=== PATIENT | male | born 1965 ===

== ENCOUNTER 2017-05-28 11:33 | Emergency (ER) | payer MEDICAID, OTHER ==
[2017-05-28 11:34] VITALS: BMI 30.1
[2017-05-28 11:54] VITALS: BP 147/103; PULSE 86; RESP 20; TEMP 98; O2SAT 98
--- NOTE | 2017-05-28 12:11 | C.PDOC ---
History Of Present Illness 52 year old male, with PMHx of chronic low back pain, presents to ED for evaluation of low back pain worse on the left side for the last 3-4 days. Notes that pain occasionally radiates down her left leg. Notes taking Aleve and Percocet without relief. Pt states she slipped and fell off the bed, landed on her back. Denies any other injury, extremity weakness, numbness, abdominal pain , or fever. Time Seen by Provider: 05/28/17 11:54 Chief Complaint (Nursing): Back Pain History Per: Patient History/Exam Limitations: no limitations Onset/Duration Of Symptoms: Days (4) Current Symptoms Are (Timing): Still Present Quality Of Discomfort: "Pain" Previous Symptoms: Back Pain, Chronic Pain Associated Symptoms: None. denies: Incontinence, New Weakness, New Numbness Exacerbating Factor(s): Nothing Additional History Per: Patient Past Medical History Reviewed: Historical Data, Nursing Documentation, Vital Signs Vital Signs: Last Vital Signs Temp 98.0 F 05/28/17 11:50 Pulse 86 05/28/17 11:50 Resp 20 05/28/17 11:50 BP 147/103 H 05/28/17 11:50 Pulse Ox 98 05/28/17 13:25 - Medical History PMH: Anxiety, Arthritis, Back Problems (herniated discs x3), Bipolar Disorder, Depression, HTN, Rheumatoid Arthritis, Sleep Apnea (SLEEPS WITH C PAP UNIT) Denies: Chronic Kidney Disease - [facility] Procedures CLOSURE SKIN & SUBCUTANEOUS NEC (03/01/13) COLONOSCOPY (08/02/06) ENDOSC POLYPECTOMY OF LG INTEST (12/27/13) ESOPHAGOGASTRODUODENOSCOPY [EGD] W/CLOSED BIOPSY (08/02/06) PACKED CELL TRANSFUSION (08/02/06) TETANUS TOXOID ADMINIST (03/01/13) Family History: States: Unknown Family Hx - Social History Hx Tobacco Use: Yes Hx Alcohol Use: Yes Hx Substance Use: No - Immunization History Hx Tetanus Toxoid Vaccination: Yes Hx Influenza Vaccination: Yes Hx Pneumococcal Vaccination: Yes Review Of Systems Except As Marked, All Systems Reviewed And Found Negative. Constitutional: Negative for: Fever, Chills Cardiovascular: Negative for: Chest Pain Respiratory: Negative for: Shortness of Breath Gastrointestinal: Negative for: Nausea, Vomiting, Abdominal Pain Genitourinary: Negative for: Dysuria, Frequency, Hematuria Musculoskeletal: Positive for: Back Pain Neurological: Negative for: Weakness, Numbness Physical Exam - Physical Exam Appears: Non-toxic, Other (In mild pain) Skin: Normal Color, Warm, Dry, Ecchymosis (1.5cm area of ecchymosis to left lower back) Head: Normacephalic Eye(s): bilateral: Normal Inspection Oral Mucosa: Moist Cardiovascular: Rhythm Regular, No Murmur Respiratory: Normal Breath Sounds, No Rales, No Rhonchi, No Wheezing Gastrointestinal/Abdominal: Soft, No Tenderness Back: No CVA Tenderness, No Vertebral Tenderness, Paraspinal Tenderness (left paralumbar) Extremity: Normal ROM Neurological/Psych: Oriented x3, Normal Speech Gait: Steady ED Course And Treatment O2 Sat by Pulse Oximetry: 98 (RA) Pulse Ox Interpretation: Normal - Other Rad LS spine X-Ray: Viewed By Me, Read By Radiologist Interpretation: Accession No. : [id number]. Patient Name / ID : EVER STALLWORTH / [id number]. Exam Date : 05/28/2017 12:55:58 ( Approved ). Study Comment : Sex / Age : M / 52Y. Creator : Yvan Agudelo MD. Dictator : Yvan Agudelo MD. Ethnographic Materials Conservator : Medical Scientific Officer : Yvan Agudelo MD. Approver2 : Report Date : 05/28/2017 13:10:23. My Comment : . PROCEDURE: Radiographs of the Lumbar Spine. HISTORY: LOW BACK PAIN. COMPARISON: No prior. FINDINGS: BONES: Normal alignment. No listhesis. No fracture. DISC SPACES: Degenerative disc disease at L5-S1 with vacuum disc phenomenon, disc space narrowing and marginal osteophytes. Remaining disc spaces are maintained in height. OTHER FINDINGS: None. IMPRESSION: Degenerative disc disease at L5 -S1. Otherwise unremarkable. Progress Note: LS spine ordered and reviewed. Pt was given Toradol, and Flexeril. On re-eval, patient is resting comfortably, reports improvement of back pain, no fever, no bony tenderness, no numbness, no weakness, or abdominal pain. Patient is ambulatory in the emergency department with no signs of discomfort. Patient was advised to follow up with their physician in 1-2 days. Medical Decision Making Medical Decision Making: [facility] AWARE: FEDERICA CURTIS 1965 1 male [address] [facility] [id number] Report [place] First Name: ever stallworth, 1965, , , , , , [place] Prescriptions:5 Prescribers:5 Pharmacies:1 Private Pay:0 Active Daily MME:0.0 Days Pharmcy* Pymt Tpe 01/13/2017 1 01/13/2017 OXYCODONE-ACETAMINOPHEN 5-325 20.0 7 ER HAB [id number] MACK (3113) 0 21.429 Comm Ins [place] 10/29/2016 1 10/29/2016 OXYCODONE-ACETAMINOPHEN 5-325 15.0 4 ME AMS [id number] MACK (3113) 0 28.125 [place] Ins [place] 10/19/2016 1 10/18/2016 OXYCODONE-ACETAMINOPHEN 5-325 20.0 4 AN FOR [id number] MACK (3113) 0 37.5 [place] Ins [place] 08/28/2016 1 08/28/2016 OXYCODONE-ACETAMINOPHEN 5-325 10.0 3 HE CINDI [id number] MACK (3113) 0 25.0 Comm Ins [place] 07/01/2016 1 07/01/2016 OXYCODONE-ACETAMINOPHEN 5-325 20.0 7 JU CARMELITA [id number] MACK (3113) 0 21.429 Comm Ins [place] Disposition Counseled Patient/Family Regarding: Diagnosis, Need For Followup, Rx Given - Disposition Referrals: Tim Craft MD [Medical Doctor] - Disposition: HOME/ ROUTINE Disposition Time: 13:25 Condition: STABLE Additional Instructions: FOLLOW UP WITH YOUR DOCTOR IN 1-2 DAYS USE MEDICATIONS NEEDED RETURN TO ER IF SYMPTOMS WORSEN Prescriptions: Cyclobenzaprine [Flexeril] 10 mg PO BID PRN #15 tab PRN Reason: Muscle Spasm Naproxen 375 mg PO BID PRN #20 tablet PRN Reason: pain Instructions: Low Back Pain (DC) Forms: [employer] (Telugu) Print Language: TURKMEN - Clinical Impression Clinical Impression: Low back pain, Lumbar sprain - Scribe Statement The provider has reviewed the documentation as recorded by the Peteribasher Waller All medical record entries made by the Peteribasher were at my direction and personally dictated by me. I have reviewed the chart and agree that the record accurately reflects my personal performance of the history, physical exam, medical decision making, and the department course for this patient. I have also personally directed, reviewed, and agree with the discharge instructions and disposition.
--- NOTE | 2017-05-28 13:11 | RAD ---
PROCEDURE: Radiographs of the Lumbar Spine. HISTORY: LOW BACK PAIN COMPARISON: No prior. FINDINGS: BONES: Normal alignment. No listhesis. No fracture. DISC SPACES: Degenerative disc disease at L5-S1 with vacuum disc phenomenon, disc space narrowing and marginal osteophytes. Remaining disc spaces are maintained in height. OTHER FINDINGS: None. IMPRESSION: Degenerative disc disease at L5-S1. Otherwise unremarkable.
== END 2017-05-28 13:53 | disposition home or self-care (01) ==
LOC: C.ER 11:33
DX: S33.5XXA Sprain of ligaments of lumbar spine, initial encounter (principal); W06.XXXA Fall from bed, initial encounter; M54.5 Low back pain
CPT/HCPCS: 72100; 96372; 99283; J1885

== ENCOUNTER 2018-02-22 15:42 | Emergency (ER) | payer OTHER ==
[2018-02-22 15:42] VITALS: BMI 30.1
[2018-02-22 15:54] VITALS: RESP 20
--- NOTE | 2018-02-22 16:06 | C.PDOC ---
History Of Present Illness 53 y/o male presents to the ER complaining of intermittent shortness of breath which has been present for the past 2 days. Patient states that his 1st episode was yesterday. During the episode, he had a sudden onset during heavy exertion and the symptoms resolved. Patient notes that he had 2nd episode today, he had sudden onset while he was resting. He notes that he still feels short of breath. Currently, patient denies having CP, fever, chills, nausea, vomiting, leg pain leg swelling ,recent travel abroad, and history of asthma. Of note, patient has history of smoking. <IsaacVeronica - Last Filed: 02/22/18 18:52> History Per: Patient History/Exam Limitations: no limitations Onset/Duration Of Symptoms: Days Current Symptoms Are (Timing): Still Present Severity: Moderate <Veronica Gray - Last Filed: 02/22/18 18:52> <Isabella Alexander - Last Filed: 02/22/18 19:58> Time Seen by Provider: 02/22/18 15:51 Chief Complaint (Nursing): Shortness Of Breath Past Medical History Reviewed: Historical Data, Nursing Documentation, Vital Signs - Medical History PMH: Anxiety, Arthritis, Back Problems (herniated discs x3), Bipolar Disorder, Depression, HTN, Rheumatoid Arthritis, Sleep Apnea (SLEEPS WITH C PAP UNIT) Denies: Chronic Kidney Disease Other Surgeries: Hx of surgeries - [facility] Procedures CLOSURE SKIN & SUBCUTANEOUS NEC (03/01/13) COLONOSCOPY (08/02/06) ENDOSC POLYPECTOMY OF LG INTEST (12/27/13) ESOPHAGOGASTRODUODENOSCOPY [EGD] W/CLOSED BIOPSY (08/02/06) PACKED CELL TRANSFUSION (08/02/06) TETANUS TOXOID ADMINIST (03/01/13) Family History: States: No Known Family Hx - Social History Hx Tobacco Use: Yes Hx Alcohol Use: Yes Hx Substance Use: No - Immunization History Hx Tetanus Toxoid Vaccination: Yes Hx Influenza Vaccination: Yes Hx Pneumococcal Vaccination: Yes <Veronica Gray - Last Filed: 02/22/18 18:52> Vital Signs: Last Vital Signs Temp 97.6 F 02/22/18 15:51 Pulse 88 02/22/18 15:51 Resp 20 02/22/18 16:07 BP 154/115 H 02/22/18 15:51 Pulse Ox 99 02/22/18 15:51 - [facility] Procedures CLOSURE SKIN & SUBCUTANEOUS NEC (03/01/13) COLONOSCOPY (08/02/06) ENDOSC POLYPECTOMY OF LG INTEST (12/27/13) ESOPHAGOGASTRODUODENOSCOPY [EGD] W/CLOSED BIOPSY (08/02/06) PACKED CELL TRANSFUSION (08/02/06) TETANUS TOXOID ADMINIST (03/01/13) <Isabella Alexander - Last Filed: 02/22/18 19:58> Review Of Systems Except As Marked, All Systems Reviewed And Found Negative. Constitutional: Negative for: Fever, Chills Cardiovascular: Negative for: Chest Pain Respiratory: Positive for: Shortness of Breath Gastrointestinal: Negative for: Nausea, Vomiting Musculoskeletal: Negative for: Leg Pain <Veronica Gray - Last Filed: 02/22/18 18:52> Physical Exam - Physical Exam Appears: Non-toxic, No Acute Distress Skin: Normal Color, Warm, Dry Head: Atraumatic, Normacephalic Eye(s): bilateral: Normal Inspection Nose: Normal Oral Mucosa: Moist Neck: Supple Chest: Symmetrical Cardiovascular: Rhythm Regular Respiratory: Normal Breath Sounds, No Rales, No Rhonchi, No Wheezing Neurological/Psych: Oriented x3, Normal Speech <Veronica Gray - Last Filed: 02/22/18 18:52> ED Course And Treatment - Laboratory Results Result Diagrams: 02/22/18 16:15 02/22/18 16:15 <Veronica Gray - Last Filed: 02/22/18 18:52> - Laboratory Results Result Diagrams: 02/22/18 16:15 02/22/18 16:15 <Isabella Alexander - Last Filed: 02/22/18 19:58> Progress - Re-Evaluation Re-evaluation Note: 02/22/18 18:52 NARD VSS - Data Reviewed Data Reviewed: Lab, Diagnostic imaging, EKG, Old records <Veronica Gray - Last Filed: 02/22/18 18:52> Medical Decision Making Medical Decision Making: Plan: --Labs --ECG --CXR --CT-Angio Chest --Albuterol <Veronica Gray - Last Filed: 02/22/18 18:52> Disposition - Disposition Disposition Time: 19:00 <Veronica Gray - Last Filed: 02/22/18 18:52> Counseled Patient/Family Regarding: Diagnosis, Need For Followup, Rx Given - Disposition Disposition Time: 19:55 <Isabella Alexander - Last Filed: 02/22/18 19:58> - Disposition Referrals: [facility] [Outside] Disposition: HOME/ ROUTINE Condition: STABLE Additional Instructions: FOLLOW UP WITH YOUR DOCTOR/CLINIC IN 1-2 DAYS USE MEDICATIONS DIRECTED RETURN TO ER IF SYMPTOMS WORSEN Prescriptions: Albuterol 0.5% [Albuterol 0.5% Inhal Jhoana (2.5 mg/0.5 ml) UD] 2.5 mg IH Q6 PRN #1 bottle PRN Reason: Wheezing Albuterol HFA [Ventolin HFA 90 mcg/actuation (8 g)] 0.09 mg IH Q4 PRN #1 puff PRN Reason: Wheezing Mask, Face [Nebulizer Aerosol Mask Adult] 1 dev XX PRN PRN #1 dev PRN Reason: sob Nebulizer and Compressor [Waldron Choice Nebulizer] 1 each MC PRN PRN #1 each NS PRN Reason: sob Instructions: Shortness of Breath (Dyspnea) (DC) Forms: [employer] ([place]er) Print Language: GERMAN - Clinical Impression Clinical Impression: Dyspnea, Bronchospasm - Scribe Statement The provider has reviewed the documentation as recorded by the Peteribe Maira Polanco Provider Attestation: All medical record entries made by the Scribe were at my direction and personally dictated by me. I have reviewed the chart and agree that the record accurately reflects my personal performance of the history, physical exam, medical decision making, and the department course for this patient. I have also personally directed, reviewed, and agree with the discharge instructions and disposition. <Veronica Gray - Last Filed: 02/22/18 18:52> Physician Patient Turnover Patient Signed Over To: Isabella Alexander Handoff Comments: YOAV MOLINA <Veronica Gary - Last Filed: 02/22/18 18:52> Addendum Addendum: 02/22/18 19:51 [place] [address] Phone: [phone] Report Submission Date: Feb 22, 2018 7:26:01 PM EST Name: FEDERICA CURTIS Exam Date: Feb 22, 2018 6:31:59 PM EST Modality Type: CT\SR Description: CTA CHEST FOR PE Gender: M Laterality: Not applicable : 67 Referring Physician: Veronica Gray MD EXAM: CTA Chest with Intravenous Contrast for Pulmonary Embolism CLINICAL HISTORY: SOB/R/O PE TECHNIQUE: Axial CTA images of the chest with intravenous contrast using a pulmonary embolism protocol. Reconstructed images were created and reviewed. 0.00 mGy-cm CONTRAST: With; VISIPAQUE 320/100ML was administered without incident. COMPARISON: None provided. FINDINGS: PULMONARY ARTERIES No evidence of central or segmental pulmonary embolism is seen. AORTA There is no evidence for aneurysm or dissection of the thoracic aorta. LUNGS The lungs appear clear. PLEURAL SPACES No pneumothorax evident. No pleural effusions. HEART Normal heart size. No significant pericardial effusion. LYMPH NODES No lymphadenopathy is evident. BONES No focal osseous abnormality or acute fracture. UPPER ABDOMEN Images of the upper abdomen are unremarkable. IMPRESSION: Unremarkable pulmonary embolism protocol CTA of the chest. Electronically signed on Feb 22, 2018 7:26:01 PM EST by: Jamie Carballo M.D., Certified by [facility], Diagnostic Radiology 02/22/18 19:54 Patient currently resting comfortably, states he feels better after neb treatment. On exam, he has good air entry B/L without wheezing or accessory muscle use. CTA neg for PE. Will given Rxs for albuterol inhaler/machine and neb fluids. Patient instructed to follow up with PMD/clinic in 1-2 days, and he understands he should return to ED if his symptoms worsen. <Isabella Alexander - Last Filed: 02/22/18 19:58>
[2018-02-22] MEDS ORDERED: Albuterol 0.083% Inhal Sol (2.5 mg/3 mL) UD ONE (16:15)
[2018-02-22 16:27] LABS: BASO # 0.1 K/uL (0.0-0.2); BASO % 0.6 % (0.0-2.0); EOS # 0.1 K/uL (0.0-0.7); EOS % 0.6 % (0.0-4.0); HEMOGLOBIN 15.3 g/dL (12.0-18.0); LYMPH # 1.5 K/uL (1.0-4.3); LYMPH % 17.6 % (20.0-40.0); MEAN CORPUSCULAR HEMOGLOBIN 30.6 pg (27.0-31.0); MEAN CORPUSCULAR HGB CONC 33.2 g/dL (33.0-37.0); MEAN PLATELET VOLUME 7.7 fL (7.2-11.7); MONO # 1.2 K/uL (0.0-0.8); MONO % 13.9 % (0.0-10.0); NEUT # 5.7 K/uL (1.8-7.0); NEUT % 67.3 % (50.0-75.0); RED CELL DISTRIBUTION WIDTH 14.4 % (11.5-14.5); WHITE BLOOD COUNT 8.4 K/uL (4.8-10.8)
[2018-02-22] MEDS: Albuterol 0.083% Inhal Sol (2.5 mg/3 mL) UD INH SCH (16:27)
--- NOTE | 2018-02-22 16:27 | RAD ---
Date of service: 02/22/2018 HISTORY: SOB COMPARISON: No prior. TECHNIQUE: Chest PA and lateral FINDINGS: LUNGS: No active pulmonary disease. PLEURA: No significant pleural effusion identified. No pneumothorax apparent. CARDIOVASCULAR: No aortic atherosclerotic calcification present. Normal cardiac size. No pulmonary vascular congestion. OSSEOUS STRUCTURES: No significant abnormalities. Incomplete visualization left shoulder replacement VISUALIZED UPPER ABDOMEN: Normal. OTHER FINDINGS: None. IMPRESSION: No active disease.
[2018-02-22 16:29] LABS: MEAN CELL VOLUME 92.4 fL (80.0-94.0)
[2018-02-22 16:42] LABS: ALB/GLOB RATIO 1.2 (1.0-2.1); ALBUMIN 4.4 g/dL (3.5-5.0); ALT/SGPT 27 U/L (21-72); AST/SGOT 45 U/L (17-59); BLOOD UREA NITROGEN 9 mg/dL (9-20); CALCIUM 9.2 mg/dl (8.6-10.4); GFR NON-AFRICAN AMERICAN > 60
[2018-02-22 16:52] LABS: B-TYPE NATRIURETIC PEPTIDE 30.1 pg/mL (0-900)
[2018-02-22] MEDS ORDERED: Iohexol 350mg/ml 100 ML ONE (17:38)
[2018-02-22 20:07] VITALS: BP 157/94; PULSE 81; TEMP 98; O2SAT 96
--- NOTE | 2018-02-23 09:08 | CT ---
Date of service: 02/22/2018 PROCEDURE: CT Chest with contrast (Pulmonary Angiogram) HISTORY: SOB r/o PE COMPARISON: None available. TECHNIQUE: Axial computed tomography images were obtained of the chest in the pulmonary arterial phase of enhancement. Coronal and sagittal reformatted images were created and reviewed. Intravenous contrast dose: Visipaque 320, 100 cc Radiation dose: Total exam DLP = 544.98 mGy-cm. This CT exam was performed using one or more of the following dose reduction techniques: Automated exposure control, adjustment of the mA and/or kV according to patient size, and/or use of iterative reconstruction technique. FINDINGS: PULMONARY ARTERIES: Unremarkable. No pulmonary embolism. AORTA: No acute findings. No thoracic aortic aneurysm. No aortic atherosclerotic calcification or mural plaque present. LUNGS: Unremarkable. No nodule, mass or pulmonary consolidation. PLEURAL SPACES: Unremarkable. No effusion or pneumothorax. HEART: Unremarkable. No cardiomegaly. No significant pericardial effusion. LYMPH NODES: No lymphadenopathy. BONES, CHEST WALL: Unremarkable. No fracture or destructive lesion OTHER FINDINGS: Small hiatal hernia. Incidental bilateral gynecomastia, right greater than left. Borderline cirrhotic liver. IMPRESSION: Unremarkable CT pulmonary angiogram. No pulmonary embolus. No acute infiltrate, pleural or pericardial effusion or significant lymphadenopathy. Incidental bilateral gynecomastia, right greater than left. Incidental small hiatal hernia and borderline cirrhotic liver.
--- NOTE | 2018-02-24 07:31 | CARD ---
APPROVED REPORT Date of service: 02/22/2018 EKG Measurement Heart [id number] <Conclusion> Normal sinus rhythm with sinus arrhythmia Normal ECG
== END 2018-02-22 20:06 | disposition home or self-care (01) ==
LOC: C.ER 15:42
DX: J98.01 Acute bronchospasm (principal); R06.00 Dyspnea, unspecified; Z87.891 Personal history of nicotine dependence
CPT/HCPCS: 71046; 71275; 80053; 83880; 84484; 85025; 85378; 93005; 94640; 99284; Q9967